=== PATIENT | male | born 1970 | race Caucasian/White ===

== ENCOUNTER 2019-07-17 18:44 | Emergency (ER) | payer BC ==
[~2019-07-17] VITALS: Ht 182.9 cm; Wt 104.5 kg
[~2019-07-17 18:44] MED LIST: NO HOME MEDICATIONS
[2019-07-17 18:47] VITALS: BP 177/98; TEMP 98.3
[2019-07-17 20:05] VITALS: PULSE 84
== END 2019-07-17 20:05 | disposition home or self-care (01) ==
LOC: COL.ER 18:44
DX: S62.631A Displaced fracture of distal phalanx of left index finger, initial encounter for closed fracture (principal); W23.0XXA Caught, crushed, jammed, or pinched between moving objects, initial encounter; Z23 Encounter for immunization